=== PATIENT | male | born 1965 | race Caucasian/White ===

== ENCOUNTER 2017-04-01 05:35 | Emergency (ER) | payer OTHER ==
[~2017-04-01] VITALS: Ht 177.8 cm; Wt 97.5 kg
[~2017-04-01 05:35] MED LIST: SERT50TA PO
[2017-04-01 05:42] VITALS: BP 115/75
--- NOTE | 2017-04-01 05:46 | NUR ---
PT TAKEN TO BED 5 Addendum: 04/01/17 at 0547 by EUFEMIA PT TAKEN TO BED 4
--- NOTE | 2017-04-01 05:50 | NUR ---
PATIENT PRESENTS TO ED WITH c/o back pain . PT DENIES N/V/D; SKIN IS PINK/WARM/DRY; AAOX4 WITH EVEN AND STEADY GAIT; LUNGS CLEAR BL; HR EVEN AND REGULAR; PT DENIES ANY FEVER, CP, SOB, OR COUGH AT THIS TIME; PATIENT STATES PAIN OF 8/10 AT THIS TIME; VSS; PATIENT POSITIONED FOR COMFORT; HOB ELEVATED; BEDRAILS UP X2; BED DOWN. ER MD MADE AWARE OF PT STATUS.
--- NOTE | 2017-04-01 06:37 | NUR ---
Dr. Rodriguez evaluating patient at bedside.
[2017-04-01] MEDS ORDERED: NACL 0.9% 1,000 ML IV SCH (06:39)
[2017-04-01] MEDS ORDERED: KETOROLAC 30 MG/ML VIAL IVP ONE (06:40)
--- NOTE | 2017-04-01 06:53 | NUR ---
PT RETURN FROM CT
--- NOTE | 2017-04-01 07:14 | NUR ---
RECEIVED REPORT FROM JOYCE GRIFFIN. Addendum: 04/01/17 at 0739 by [facility] AT BEDSIDE.
--- NOTE | 2017-04-01 07:17 | NUR ---
LOWER BACK PAIN 5/10.Patient appears to be resting comfortably in bed. Vital Signs within normal limits. Respirations even and unlabored.WILL CONTINUE TO MONITOR.
--- NOTE | 2017-04-01 07:18 | NUR ---
LAB AT BEDSIDE.
[2017-04-01 07:33] LABS: HEMATOCRIT 41.8 % (36-52); HEMOGLOBIN 14.1 g/dL (12.0-18.0); MEAN CORPUSCULAR HEMOGLOBIN 29 pg (27-31); MEAN CORPUSCULAR HGB CONC 34 g/dL (33-37); MEAN CORPUSCULAR VOLUME 88 fL (80-94); PLATELET COUNT (AUTO) 166 K/uL (140-450); RED BLOOD CELL COUNT(AUTO) 4.78 MIL/uL (4.20-6.10); RED CELL DISTRIBUTION WIDTH 12.4 % (11.6-13.7); WHITE BLOOD COUNT (AUTO) 5.3 K/uL (4.8-10.8)
--- NOTE | 2017-04-01 07:39 | NUR ---
PT STS PAIN 2 AT THIS TIME
[2017-04-01 07:48] LABS: ALBUMIN 3.4 g/dL (3.4-5.0); CARBON DIOXIDE 28.2 mmol/L (21-32); CREATININE 0.8 mg/dL (0.7-1.3); POTASSIUM 4.2 mmol/L (3.5-5.1); TOTAL BILIRUBIN 0.6 mg/dL (0.0-1.0)
[2017-04-01 07:57] LABS: APPEARANCE,URINE TURBID (CLEAR); BILIRUBIN,URINE NEGATIVE (NEGATIVE); BLOOD, URINE 3+ (NEGATIVE); COLOR,URINE YELLOW (YELLOW); LEUKOCYTE ESTERASE ,URINE NEGATIVE (NEGATIVE); NITRITE, URINE NEGATIVE (NEGATIVE); PH,URINE 5.5 (5.0-9.0); UGLUCOSE NEGATIVE (NEGATIVE)
[2017-04-01 08:04] LABS: EOSINOPHILS % (MANUAL) 2 % (0-4); LYMPHOCYTES % (MANUAL) 33 % (20-46); MONOCYTES % (MANUAL) 11 % (5-12)
[2017-04-01 08:07] LABS: RBC,URINE NONE SEEN /HPF (0-5); WBC,URINE 0-5 (RARE) /HPF (0-5)
[2017-04-01 08:08] LABS: URINE AMORPHOUS URATE 4+ /HPF (None Seen)
--- NOTE | 2017-04-01 08:51 | NUR ---
PT STS NO PAIN AT THIS TIME.Patient appears to be resting comfortably in bed. Vital Signs within normal limits. Respirations even and unlabored.WILL CONTINUE TO MONITOR.
--- NOTE | 2017-04-01 09:07 | NUR ---
Patient being reevaluated by DR SPENCER at bedside.
--- NOTE | 2017-04-01 09:10 | NUR ---
IV removed, catheter intact and site benign. Applied folded 4x4 gauze and tape to stop bleeding.
[2017-04-01 09:12] VITALS: BP 115/74
== END 2017-04-01 09:12 | disposition home or self-care (01) ==
LOC: MED 05:35
DX: R10.32 Left lower quadrant pain (principal)
CPT/HCPCS: 36415; 74176; 80053; 81001; 82150; 83605; 83690; 85025; 87086; 96361; 96374; 99285; J1885; J7030

== ENCOUNTER 2019-12-12 21:42 | Inpatient (IN) | payer OTHER ==
[~2019-12-12] VITALS: Ht 177.8 cm; Wt 105.7 kg
[2019-12-12 21:45] VITALS: BP 144/80
--- NOTE | 2019-12-12 21:49 | NUR ---
PT AMBULATED TO BED #4
--- NOTE | 2019-12-12 22:00 | NUR ---
CHEST PAIN X2 HOURS. PRESSURE LIKE-PAIN. NEGATIVE COVID-19 SCREENING. pain is nonradiating. rates pain 3/10. pt states he had sob. resp assessment: nonlabored breathing, equal chest rise and fall. no sob or use of accessory muscle. spo2 98% ra. vss. denies any n,v. pt also c/o patel. preciptating factor: pt was sitting on the couch and was thinking about work and bills and started getting himself stressed and anxious. cap refill < 3. skin is warm to touch and color is normal for ethnicity. lung sounds clear all throughout. heart sounds s1s2 present. a&o x4. steady gait. siderails up x 2. MEDHX- HLYD NKA
[2019-12-12] MEDS ORDERED: NITROGLYCERIN 2% 1 GM PKT TP ONE (22:05)
[2019-12-12] MEDS ORDERED: MORPHINE SULFATE 2 MG/ML SYR IVP ONE (22:05)
[2019-12-12] MEDS ORDERED: ASPIRIN 325 MG TAB PO ONE (22:05)
[2019-12-12 22:31] LABS: BASOPHILS % (AUTO) 0.4 % (0.0-2.0); EOSINOPHILS # (AUTO) 0.2 K/uL (0-0.4); EOSINOPHILS % (AUTO) 2.3 % (0.0-4.0); HEMATOCRIT 42.9 % (36-52); HEMOGLOBIN 14.7 g/dL (12.0-18.0); LYMPHOCYTES % (AUTO) 39.5 % (20.5-51.1); MEAN CORPUSCULAR HEMOGLOBIN 30 pg (27-31); MEAN CORPUSCULAR HGB CONC 34 g/dL (33-37); MEAN CORPUSCULAR VOLUME 87.4 fL (80-94); MONOCYTES # (AUTO) 0.8 K/uL (0.8-1.0); MONOCYTES % (AUTO) 10.6 % (1.7-9.3); NEUTROPHILS # (AUTO) 3.5 K/uL (1.8-7.7); NEUTROPHILS % (AUTO) 47.2 % (42.2-75.2); PLATELET COUNT (AUTO) 221 K/uL (140-450); RED BLOOD CELL COUNT(AUTO) 4.91 MIL/uL (4.20-6.10); RED CELL DISTRIBUTION WIDTH 13.3 % (11.6-13.7); WHITE BLOOD COUNT (AUTO) 7.5 K/uL (4.8-10.8)
[2019-12-12 22:47] LABS: ANION GAP 8.2 (8-16); CARBON DIOXIDE 33.2 mmol/L (21-32); CREATININE 1.1 mg/dL (0.6-1.3); POTASSIUM 4.4 mmol/L (3.5-5.1); TOTAL BILIRUBIN 0.7 mg/dL (0.0-1.0)
[2019-12-12 22:48] LABS: CHOL/HDL RATIO 6.1 (1-4.5)
[2019-12-12 22:55] LABS: CREATINE KINASE MB 2.8 ng/mL (0-3.6)
[2019-12-12] MEDS ORDERED: ONDANSETRON 4 MG/2 ML VIAL IVP PRN (23:15)
[2019-12-12] MEDS ORDERED: NITROGLYCERIN 0.4 MG TAB SL PRN (23:15)
[2019-12-12] MEDS ORDERED: ACETAMINOPHEN 325 MG TAB PO PRN (23:15)
[2019-12-12] MEDS ORDERED: HYDROcodone/APAP 7.5/325 MG 1 TAB PO PRN (23:15)
--- NOTE | 2019-12-12 23:35 | NUR ---
Patient will be admitted to care of DR. BOBO. Admited to TELE. Will go to room 122B. Belongings list completed. Report to JOYCE TAVAREZ.
--- NOTE | 2019-12-12 23:35 | NUR ---
RECEIVED PATIENT FROM ER VIA RPULASKI IN STABLE CONDITION FOR CONTINUITY OF CARE. AAOX4. RESPIRATIONS EVEN, UNLABORED. SKIN WARM/DRY/INTACT. SKIN ASSESSMENT COMPLETED. IV SITE NOTED TO LEFT AC 20G PATENT/INTACT. NO C/O CHEST PAIN AT THIS TIME. PATIENT AMBULATES WELL. CONTINENT OF B/B. PATIENT ORIENTED TO ROOM/STAFF/CALL LIGHT. MRSA SCREEN COMPLETED. VITALS STABLE. CALL LIGHT WITHIN REACH. WILL CONTINUE TO MONITOR.
[2019-12-12 23:44] LABS: PROTHROMBIN TIME 10.4 secs (10.8-13.4)
[2019-12-12 23:46] LABS: MAGNESIUM 1.8 mg/dL (1.8-2.4); PHOSPHORUS 4.7 mg/dL (2.5-4.9); THYROID STIMULATING HORMONE 3.77 uIU/mL (0.34-3.74)
[2019-12-13] MEDS: NACL 0.9% 1,000 ML IV SCH ×2 (00:09→18:29)
--- NOTE | 2019-12-13 01:44 | NUR ---
PATIENT IS ASLEEP IN BED. NO C/O PAIN. NO SIGN/SYMPTOM OF ACUTE DISTRESS. CALL LIGHT WITHIN REACH. WILL CONTINUE TO MONITOR.
--- NOTE | 2019-12-13 03:21 | NUR ---
MADE ROUNDS. PATIENT IS ASLEEP AND CONTINUES IN STABLE CONDITION. NO C/O PAIN. NO SIGN/SYMPTOM OF ACUTE DISTRESS. ALL LIGHT WITHIN REACH. WILL CONTINUE TO MONITOR.
[2019-12-13 04:00] VITALS: BP 113/70
--- NOTE | 2019-12-13 05:11 | NUR ---
PATIENT ASLEEP. CONTINUES IN STABLE CONDITION. NO C/O PAIN. NO SIGN/SYMPTOM OF DISTRESS. CALL LIGHT WITHIN REACH. WILL CONTINUE TO MONITOR.
[2019-12-13 05:50] LABS: BASOPHILS % (AUTO) 0.6 % (0.0-2.0); EOSINOPHILS # (AUTO) 0.2 K/uL (0-0.4); EOSINOPHILS % (AUTO) 3.3 % (0.0-4.0); HEMATOCRIT 41.2 % (36-52); HEMOGLOBIN 13.7 g/dL (12.0-18.0); LYMPHOCYTES # (AUTO) 3.2 K/uL (2.0-11.5); LYMPHOCYTES % (AUTO) 44.3 % (20.5-51.1); MEAN CORPUSCULAR HEMOGLOBIN 30 pg (27-31); MEAN CORPUSCULAR HGB CONC 33 g/dL (33-37); MEAN CORPUSCULAR VOLUME 88.9 fL (80-94); MONOCYTES # (AUTO) 0.7 K/uL (0.8-1.0); MONOCYTES % (AUTO) 10.1 % (1.7-9.3); NEUTROPHILS % (AUTO) 41.7 % (42.2-75.2); PLATELET COUNT (AUTO) 206 K/uL (140-450); RED BLOOD CELL COUNT(AUTO) 4.64 MIL/uL (4.20-6.10); RED CELL DISTRIBUTION WIDTH 13.6 % (11.6-13.7); WHITE BLOOD COUNT (AUTO) 7.1 K/uL (4.8-10.8)
[2019-12-13 06:10] LABS: ANION GAP 10.1 (8-16); CARBON DIOXIDE 29.7 mmol/L (21-32); POTASSIUM 3.8 mmol/L (3.5-5.1)
[2019-12-13 06:12] LABS: MAGNESIUM 1.8 mg/dL (1.8-2.4); PHOSPHORUS 5.1 mg/dL (2.5-4.9)
--- NOTE | 2019-12-13 06:12 | NUR ---
PATIENT CONTINUES IN STABLE CONDITION. NO C/O PAIN. NO SIGN/SYMPTOM OF DISTRESS. CALL LIGHT WITHIN REACH. WILL CONTINUE TO MONITOR.
--- NOTE | 2019-12-13 07:20 | NUR ---
RECEIVED REPORT FROM DIGITAL CARTOGRAPHIC TECHNICIAN NURSE. PATIENT LYING DOWN IN BED SLEEPING, AROUSABLE BY VOICE. NO DISTRESS NOTED. DENIES ANY PAIN. AAOX4, CALM, COOPERATIVE, SKIN COLOR APPROPRIATE TO ETHNICITY, WARM TO TOUCH. SKIN INTACT. RESPIRATIONS EVEN, UNLABORED, ON ROOM AIR. IV SITE INTACT, PATENT, AND INFUSING IVF PER MD ORDERS. REVIEWED PLAN OF CARE WITH PATIENT. PATIENT VERBALIZED UNDERSTANDING. SAFETY MEASURES IN PLACE, CALL LIGHT WITHIN REACH. WILL CONTINUE TO MONITOR.
[2019-12-13 08:00] VITALS: BP 104/62
[2019-12-13] MEDS ORDERED: ATOR20TA PO (08:21)
[2019-12-13] MEDS: METOPROLOL 25 MG TAB PO SCH ×2 (09:00→20:23)
[2019-12-13] MEDS: LISINOPRIL 5 MG TAB PO SCH (09:00)
[2019-12-13] MEDS: DOCUSATE SODIUM 100 MG GELCAP PO SCH ×2 (09:08→20:22)
[2019-12-13] MEDS: ASPIRIN 81 MG TAB.CHEW PO SCH (09:08)
[2019-12-13] MEDS: FAMOTIDINE 20 MG TAB PO SCH (09:08)
--- NOTE | 2019-12-13 09:15 | NUR ---
PATIENT LYING DOWN IN BED SLEEPING, AROUSABLE BY VOICE. NO DISTRESS NOTED. DENIES ANY PAIN. SCHEDULED MEDICATIONS DUE GIVEN. WILL CONTINUE TO MONITOR.
--- NOTE | 2019-12-13 11:01 | NUR ---
ETHNOGRAPHER NOTE: Basic Screen: Yes High Risk DC Screen Juliette: BRIGITTE Echavarria Relationship: Pre-Admission Living Arrangements: Lives with Other Prior ADL Independent Current Home Health Name/Tel: N/A Current DME/02 Name/Tel: N/A Current Hospice Name/Tel: N/A Current Dialysis Name/Tel: N/A Healthcare Decision Maker: Patient Advance Directive No Physician Orders for Life Sustaining Treatment Form No Patient/Family Have Educational Needs No Discipline: Case Mgt/Social Svcs Tentative Discharge Plan/Destination: No Needs Identified Will require assistance post discharge: No Referred to [employer] Set Up Operator: No Tentative Discharge Plan Summary: PATIENT IS A 54-YEAR-OLD MALE ADMITTED FOR CHEST PAIN R/O ACS. PATIENT HAS PMHX OF HLD. PATIENT WAS ADMITTED FROM HOME WHERE HE LIVES WITH HIS AND COUSINS. SW CONTACTED BRIGITTE MANZO [phone] TO VERIFY DEMOGRAPHICS. PER BRIGITTE, PATIENT IS INDEPENDENT WITH ALL ADLS AND REPORTS NO HISTORY OF SUBSTANCE ABUSE OR MENTAL HEALTH. TENTATIVE DISCHARGE PLAN IS FOR PATIENT TO RETURN HOME. NO FURTHER NEEDS IDENTIFIED. Signature: SHARON JMIENEZ Date: December 13, 2019 Time: 10:57
--- NOTE | 2019-12-13 11:40 | NUR ---
PATIENT GETTING ECHOCARDIOGRAM AT BEDSIDE. WILL CONTINUE TO MONITOR.
[2019-12-13 12:00] VITALS: BP 107/73
--- NOTE | 2019-12-13 12:52 | NUR ---
PATIENT SITTING IN BED EATING LUNCH. WILL CONTINUE TO MONITOR.
--- NOTE | 2019-12-13 14:30 | NUR ---
PATIENT WALKING AROUND IN ROOM, NO DISTRESS NOTED. CONDITION UNCHANGED. WILL CONTINUE TO MONITOR .
[2019-12-13 16:00] VITALS: BP 130/67
--- NOTE | 2019-12-13 18:00 | NUR ---
PATIENT SITTING DOWN IN BED WATCHING TV. NO DISTRESS NOTED. DENIES ANY PAIN. WILL CONTINUE TO MONITOR.
--- NOTE | 2019-12-13 18:03 | NUR ---
PATIENT SITTING IN BED WITH DINNER TRAY IN FRONT. CONDITION UNCHANGED. WILL CONTINUE TO MONITOR.
--- NOTE | 2019-12-13 19:20 | NUR ---
RECEIVED REPORT FROM DAY SHIFT NURSE. PATIENT LYING IN BED COMFORTABLY. ALERT/ORIENTED X 4. AMBULATORY. RESPIRATIONS EVEN AND UNLABORED. SKIN INTACT. PATIENT WITH IV INFUSING WELL WITH IVF INTACT AND PATENT. NO DISTRESS NOTED AT THIS TIME. REVIEWED PLAN OF CARE WITH THE PATIENT. PT VERBALIZED UNDERSTANDING WELL. CALL LIGHT WITHIN REACH. SAFETY MEASURES IN PLACE. WILL CONTINUE TO MONITOR.
--- NOTE | 2019-12-13 19:21 | NUR ---
GAVE REPORT TO MEDICAL TECHNOLOGIST CHIEF NURSE FOR CONTINUITY OF CARE. PATIENT IN STABLE CONDITION.
--- NOTE | 2019-12-13 19:43 | NUR ---
PATIENT COMPLAINED OF HEADACHE OF 3/10PS. TYLENOL 650 MG GIVEN NEEDED FOR PAIN. PATIENT MADE COMFORTABLE THEREAFTER. WILL CONTINUE TO MONITOR.
[2019-12-13 20:00] VITALS: BP 111/71
--- NOTE | 2019-12-13 20:01 | NUR ---
JUAN FROM [facility] CALLED. HE SAID THE LEXISCAN WILL PROBABLY BE SCHEDULED ON SUNDAY. HE GOT DR. WINSTON PHONE NUMBER .
[2019-12-13] MEDS: ATORVASTATIN 20 MG TAB PO SCH (20:22)
[2019-12-13] MEDS ORDERED: CRUSHER, PILL MC ONE (20:24)
--- NOTE | 2019-12-13 20:31 | NUR ---
SCHEDULED DUE MEDICATIONS GIVEN. PATIENT TOLERATED WELL. WILL CONTINUE TO MONITOR.
--- NOTE | 2019-12-13 21:57 | NUR ---
JUAN FROM [facility] CALLED AGAIN AND SAID THE LEXISCAN WILL BE SCHEDULED ON SUNDAY 11:00 AM.
--- NOTE | 2019-12-13 22:39 | NUR ---
PATIENT SLEEPING COMFORTABLY. CALL LIGHT WITHIN REACH. WILL CONTINUE TO MONITOR.
[2019-12-14] VITALS: BP 114/69
[2019-12-14 01:14] LABS: APPEARANCE,URINE CLEAR (CLEAR); BILIRUBIN,URINE NEGATIVE (NEGATIVE); BLOOD, URINE NEGATIVE (NEGATIVE); COLOR,URINE YELLOW (YELLOW); LEUKOCYTE ESTERASE ,URINE NEGATIVE (NEGATIVE); NITRITE, URINE NEGATIVE (NEGATIVE); UGLUCOSE NEGATIVE (NEGATIVE)
--- NOTE | 2019-12-14 02:27 | NUR ---
PATIENT STILL SLEEPING COMFORTABLY. CALL LIGHT WITHIN REACH. WILL CONTINUE TO MONITOR.
[2019-12-14 04:00] VITALS: BP 107/52
--- NOTE | 2019-12-14 04:54 | NUR ---
PT ASLEEP. NO SIGNS OF DISTRESS. WILL CONTINUE TO MONITOR.
[2019-12-14 06:12] LABS: BASOPHILS # (AUTO) 0.1 K/uL (0.00-0.22); EOSINOPHILS # (AUTO) 0.3 K/uL (0-0.4); EOSINOPHILS % (AUTO) 3.8 % (0.0-4.0); HEMATOCRIT 40.9 % (36-52); HEMOGLOBIN 13.8 g/dL (12.0-18.0); LYMPHOCYTES # (AUTO) 2.7 K/uL (2.0-11.5); LYMPHOCYTES % (AUTO) 38.4 % (20.5-51.1); MEAN CORPUSCULAR HEMOGLOBIN 30 pg (27-31); MEAN CORPUSCULAR HGB CONC 34 g/dL (33-37); MEAN CORPUSCULAR VOLUME 88.2 fL (80-94); MONOCYTES # (AUTO) 0.7 K/uL (0.8-1.0); MONOCYTES % (AUTO) 9.7 % (1.7-9.3); NEUTROPHILS # (AUTO) 3.3 K/uL (1.8-7.7); NEUTROPHILS % (AUTO) 47.1 % (42.2-75.2); PLATELET COUNT (AUTO) 200 K/uL (140-450); RED BLOOD CELL COUNT(AUTO) 4.64 MIL/uL (4.20-6.10); RED CELL DISTRIBUTION WIDTH 13.2 % (11.6-13.7); WHITE BLOOD COUNT (AUTO) 7.1 K/uL (4.8-10.8)
[2019-12-14 06:34] LABS: CHOL/HDL RATIO 5.8 (1-4.5); MAGNESIUM 1.7 mg/dL (1.8-2.4); PHOSPHORUS 3.8 mg/dL (2.5-4.9)
--- NOTE | 2019-12-14 06:36 | NUR ---
FNS consult received on 12/13/19 for no reason given. Consult reason does not meet high risk criteria per hospital policy. Patient will be seen and assessed according to the nutrition care policy. Louisa Chilel MS, RDN
--- NOTE | 2019-12-14 06:56 | NUR ---
PATIENT HAS BEEN SCREENED AND CATEGORIZED MODERATE NUTRITION RISK. PATIENT WILL BE SEEN WITHIN 3-5 DAYS OF ADMISSION. 12/16/19-12/18/19 CHERI TROTTER MS, RDN
[2019-12-14 07:03] LABS: ANION GAP 8.1 (8-16); CARBON DIOXIDE 30.5 mmol/L (21-32); CREATININE 0.9 mg/dL (0.6-1.3); POTASSIUM 4.6 mmol/L (3.5-5.1)
--- NOTE | 2019-12-14 07:19 | NUR ---
PATIENT IN STABLE CONDITION. GAVE REPORT TO DAY SHIFT NURSE FOR CONTINUITY OF CARE.
--- NOTE | 2019-12-14 07:20 | NUR ---
RECEIVED REPORT FROM SURVEILLANCE DUAL RATE OFFICER NURSE. PATIENT SITTING IN BED WITH BREAKFAST TRAY IN FONT. NO DISTRESS NOTED. DENIES ANY PAIN. AAOX4, CALM, COOPERATIVE, SKIN COLOR APPROPRIATE TO ETHNICITY, WARM TO TOUCH. SKIN INTACT. RESPIRATIONS EVEN, UNLABORED, ON ROOM AIR. IV SITE INTACT, PATENT, AND INFUSING IVF PER MD ORDERS. REVIEWED PLAN OF CARE WITH PATIENT. PATIENT VERBALIZED UNDERSTANDING. SAFETY MEASURES IN PLACE, CALL LIGHT WITHIN REACH. WILL CONTINUE TO MONITOR.
[2019-12-14 08:00] VITALS: BP 120/80
[2019-12-14] MEDS: LISINOPRIL 5 MG TAB PO SCH (09:00)
[2019-12-14] MEDS: DOCUSATE SODIUM 100 MG GELCAP PO SCH ×2 (09:06→20:16)
[2019-12-14] MEDS: METOPROLOL 25 MG TAB PO SCH ×2 (09:06→20:16)
[2019-12-14] MEDS: ASPIRIN 81 MG TAB.CHEW PO SCH (09:06)
[2019-12-14] MEDS: FAMOTIDINE 20 MG TAB PO SCH (09:06)
--- NOTE | 2019-12-14 09:12 | NUR ---
PATIENT SITTING IN BED ON HIS PHONE NO DISTRESS NOTED. DENIES ANY PAIN. SCHEDULED MEDICATIONS DUE GIVEN. WILL CONTINUE TO MONITOR.
[2019-12-14] MEDS ORDERED: MAGNESIUM OXIDE 400 MG TAB PO SCH (09:15)
--- NOTE | 2019-12-14 11:30 | NUR ---
PATIENT SITTING DOWN IN BED ON HIS PHONE. NO DISTRESS NOTED. DENIES ANY PAIN. CONDITION UNCHANGED. WILL CONTINUE TO MONITOR.
[2019-12-14 12:00] VITALS: BP 115/76
--- NOTE | 2019-12-14 13:40 | NUR ---
PATIENT WALKING AROUND IN BEDROOM. NO DISTRESS NOTED. CONDITION UNCHANGED. WILL CONTINUE TO MONITOR.
[2019-12-14] MEDS: NACL 0.9% 1,000 ML IV SCH (15:16)
[2019-12-14] MEDS: FISH OIL PO SCH ×2 (15:16→18:57)
[2019-12-14 16:00] VITALS: BP 117/69
--- NOTE | 2019-12-14 16:30 | NUR ---
PATIENT SITTING DOWN IN BED WATCHING TV. CONDITION UNCHANGED. WILL CONTINUE TO MONITOR.
--- NOTE | 2019-12-14 19:11 | NUR ---
RECEIVED REPORT FROM DAY SHIFT NURSE. PT SITTING IN CHAIR. AWAKE, ALERT, AND ORIENTED. AMBULATORY. ABLE TO MAKE NEEDS KNOWN. DENIES ANY PAIN OR DISCOMFORT AT THIS TIME. RESPIRATIONS EVEN AND UNLABORED TO ROOM AIR. IV SITE L AC G20 INTACT AND PATENT. IVF INFUSING WELL ORDERED. PLAN OF CARE DISCUSSED. PT AMENABLE. NO OTHER REQUESTS MADE AT THIS TIME. CALL LIGHT WITHIN REACH. WILL CONTINUE TO MONITOR.
--- NOTE | 2019-12-14 19:11 | NUR ---
GAVE REPORT TO DIRECTOR EMERGENCY NURSE FOR CONTINUITY OF CARE. PATIENT IN STABLE CONDITION.
[2019-12-14 20:00] VITALS: BP 138/80
[2019-12-14] MEDS: ATORVASTATIN 20 MG TAB PO SCH (20:16)
--- NOTE | 2019-12-14 20:21 | NUR ---
VITAL SIGNS WNL. SCHEDULED MEDS GIVEN ORDERED. PT IN BED RESTING. NO COMPLAINS OF THIS TIME. PT KEPT COMFORTABLE. CALL LIGHT WITHIN REACH. WILL CONTINUE TO MONITOR.
[2019-12-14 21:38] LABS: BARBITURATE, URINE NEGATIVE ng/ml (NEG <=200)
[2019-12-14 21:39] LABS: BENZODIAZEPINE, URINE NEGATIVE ng/mL (NEG <=200); CANNABINOID, URINE NEGATIVE ng/mL (NEG <=50); COCAINE, URINE NEGATIVE ng/mL (NEG <=300); OPIATE, URINE POSITIVE ng/mL (NEG <=2000); PHENCYCLIDINE SCREEN,URINE NEGATIVE ng/mL (NEG <=25)
--- NOTE | 2019-12-14 22:05 | NUR ---
PT IN BED SLEEPING. NO S/SX OF DISTRESS NOTED. SAFETY MEASURES IN PLACE. WILL CONTINUE TO MONITOR.
[2019-12-15] VITALS: BP 111/68
--- NOTE | 2019-12-15 00:20 | NUR ---
VITAL SIGNS WITHIN NORMAL LIMITS. PT DENIES ANY PAIN OR DISTRESS. NO REQUESTS MADE AT THIS TIME. PT KEPT COMFORTABLE. CALL LIGHT WITHIN REACH. WILL CONTINUE TO MONITOR.
--- NOTE | 2019-12-15 02:12 | NUR ---
PT SLEEPING. RESPIRATIONS EVEN AND UNLABORED. NO S/X OF DISTRESS NOTED. CALL LIGHT WITHIN REACH. WILL CONTINUE TO MONITOR.
[2019-12-15 04:00] VITALS: BP 91/58
--- NOTE | 2019-12-15 04:18 | NUR ---
PT RESTING IN BED. VS WITHIN NORMAL LIMITS. NO COMPLAINS MADE AT THIS TIME. NO REQUESTS MADE WELL. PT KEPT COMFORTABLE. CALL LIGHT WITHIN REACH. WILL CONTINUE TO MONITOR.
[2019-12-15 06:06] LABS: ANION GAP 8.7 (8-16); CARBON DIOXIDE 32.8 mmol/L (21-32); POTASSIUM 4.5 mmol/L (3.5-5.1)
[2019-12-15 06:14] LABS: BASOPHILS % (AUTO) 0.5 % (0.0-2.0); EOSINOPHILS # (AUTO) 0.3 K/uL (0-0.4); EOSINOPHILS % (AUTO) 3.8 % (0.0-4.0); HEMATOCRIT 40.2 % (36-52); HEMOGLOBIN 13.7 g/dL (12.0-18.0); LYMPHOCYTES # (AUTO) 2.9 K/uL (2.0-11.5); MEAN CORPUSCULAR HEMOGLOBIN 30 pg (27-31); MEAN CORPUSCULAR HGB CONC 34 g/dL (33-37); MEAN CORPUSCULAR VOLUME 88.4 fL (80-94); MONOCYTES # (AUTO) 0.8 K/uL (0.8-1.0); MONOCYTES % (AUTO) 11.7 % (1.7-9.3); NEUTROPHILS # (AUTO) 2.9 K/uL (1.8-7.7); PLATELET COUNT (AUTO) 198 K/uL (140-450); RED BLOOD CELL COUNT(AUTO) 4.55 MIL/uL (4.20-6.10); RED CELL DISTRIBUTION WIDTH 13.4 % (11.6-13.7); WHITE BLOOD COUNT (AUTO) 6.9 K/uL (4.8-10.8)
[2019-12-15 06:24] LABS: MAGNESIUM 1.6 mg/dL (1.8-2.4); PHOSPHORUS 3.7 mg/dL (2.5-4.9)
--- NOTE | 2019-12-15 07:20 | NUR ---
GAVE REPORT TO DAY SHIFT NURSE FOR CONTINUITY OF CARE. PT IN STABLE CONDITION.
--- NOTE | 2019-12-15 07:21 | NUR ---
RECEIVED REPORT FROM BRIM CURLER. PATIENT STANDING NEXT TO BED WATCHING TV. NO DISTRESS NOTED, DENIES ANY PAIN. NOTIFIED OF STRESS TEST AT NOON. PATIENT TO BE NPO AFTER BREAKFAST. RESPIRATION EVEN AND UNLABORED ON ROOM AIR. IV SITE INTACT AND PATENT AND INFUSING IVF PER ORDERS. SKIN INTACT AND WARM. AA0X4. REVIEWED PLAN OF CARE WITH PATIENT. PATIENT VERBALIZED UNDERSTANDING. SAFETY MEASURES IN PLACE. CALL LIGHT WITHIN REACH, BED IN LOWEST POSITION. WILL CONTINUE TO MONITOR.
[2019-12-15 08:00] VITALS: BP 124/46
[2019-12-15] MEDS: ASPIRIN 81 MG TAB.CHEW PO SCH (08:18)
[2019-12-15] MEDS: DOCUSATE SODIUM 100 MG GELCAP PO SCH (08:18)
[2019-12-15] MEDS: FAMOTIDINE 20 MG TAB PO SCH (08:19)
[2019-12-15] MEDS: FISH OIL PO SCH ×2 (08:20→15:27)
--- NOTE | 2019-12-15 08:23 | NUR ---
SCHEDULED DUE MEDICATIONS GIVEN. PATIENT TOLERATED WELL. WILL CONTINUE TO MONITOR.
[2019-12-15] MEDS: METOPROLOL 25 MG TAB PO SCH (08:24)
[2019-12-15] MEDS: LISINOPRIL 5 MG TAB PO SCH (08:24)
[2019-12-15] MEDS ORDERED: ATOR40TA PO (08:45)
[2019-12-15] MEDS: NACL 0.9% 1,000 ML IV SCH (10:37)
--- NOTE | 2019-12-15 11:40 | NUR ---
PATIENT IS IN BED ON HIS CELL PHONE, RESTING QUIETLY. AWAITING STRESS TEST. DENIES PAIN AT THIS TIME. NO DISTRESS NOTED. WILL CONTINUE TO MONITOR
[2019-12-15] MEDS ORDERED: REGADENOSON 0.4 MG/5 ML SYR IV SCH (12:00)
[2019-12-15 12:12] VITALS: BP 114/78
--- NOTE | 2019-12-15 12:40 | NUR ---
RADIOLOGIST AT BEDSIDE TO TAKE PATIENT FOR STRESS TEST.
--- NOTE | 2019-12-15 15:28 | NUR ---
PATIENT RETURNED FROM RADIOLOGY. SCHEDULED MEDICATIONS ADMINISTERED. PATIENT TOLERATED WELL. NO DISTRESS NOTED. DENIES PAIN AT THIS TIME. WILL CONTINUE TO MONITOR.
[2019-12-15 16:22] VITALS: BP 127/82
--- NOTE | 2019-12-15 16:35 | NUR ---
PATIENT LYING IN BED WATCHING TV. NO DISTRESS NOTED. DENIES PAIN AT THIS TIME. WILL CONTINUE TO MONITOR.
--- NOTE | 2019-12-15 17:50 | NUR ---
DISCHARGE INSTRUCTIONS PROVIDED TO PATIENT IN PREFERRED LANGUAGE OF CHINESE. INSTRUCTIONS ON FOLLOW UP VISIT WITH PCP, NEW/CHANGE MEDICATION REGIMEN AND SIDE EFFECTS, DISEASE MANAGEMENT OF CHEST PAIN. ANSWERED ALL PT QUESTIONS. PATIENT VERBALIZED UNDERSTANDING. IV SITE REMOVED WITH MINIMAL BLOOD AND LUMEN COMPLETELY INTACT. ID BAND REMOVED. ESCORTED PATIENT TO LOBBY VIA [facility] AMBULATION. PATIENT DISCHARGED AT THIS TIME TO HOME IN STABLE CONDITION.
== END 2019-12-15 17:50 | disposition home or self-care (01) | DRG 392 ==
LOC: MED 21:42 → MTU 23:11
PROVIDERS: ADMIT General Practice; ATTEND General Practice
DX: K21.9 Gastro-esophageal reflux disease without esophagitis (principal); E83.39 Other disorders of phosphorus metabolism; E83.42 Hypomagnesemia; E78.5 Hyperlipidemia, unspecified; E78.1 Pure hyperglyceridemia; E11.9 Type 2 diabetes mellitus without complications; E66.9 Obesity, unspecified; Z68.33 Body mass index [BMI] 33.0-33.9, adult
CPT/HCPCS: 36415; 71045; 80048; 80053; 80305; 81003; 82550; 82553; 83036; 83690; 83735; 83880; 84100; 84443; 84484; 85025; 85379; 85610; 85730; 87081; 93005; 93017; 96374; 99291; A9500; A9502; J1644; J2270; J2785; J7030; Q0092